=== PATIENT | male | born 1950 | race Caucasian/White ===

== ENCOUNTER 2019-03-03 14:10 | Emergency (ER) | payer SELFPAY ==
[~2019-03-03] VITALS: Ht 170.2 cm; Wt 67.0 kg
[2019-03-03 16:25] LABS: CLARITY URINE CLEAR (CLEAR); COLOR URINE YELLOW (YELLOW); KETONES URINE NEGATIVE (NEGATIVE); LEUKOCYTE ESTERASE URINE NEGATIVE (NEGATIVE); NITRITE URINE NEGATIVE (NEGATIVE); OCCULT BLOOD URINE NEGATIVE (NEGATIVE); PH URINE 6.5 (4.5-8.0); PROTEIN URINE NEGATIVE (NEGATIVE); SPECIFIC GRAVITY URINE 1.007 (1.005-1.030); UROBILINOGEN URINE 0.2 E.U./dL (0.2-1.0)
[2019-03-03] MEDS: KETOROLAC 30MG/ML VIAL IV ONE (16:27)
[2019-03-03] MEDS: SODIUM CHLORIDE 0.9% 1,000 ML IV ONE (16:27)
[2019-03-03 16:39] LABS: BASOPHILS % 0.7 % (0.0-2.0); EOSINOPHILS % 3.2 % (0.0-5.0); HEMATOCRIT. 32.5 % (42.0-52.0); HEMOGLOBIN. 10.7 g/dL (14.0-18.0); LYMPHOCYTES % 30.3 % (20.0-50.0); MEAN CORPUSCULAR HEMOGLOBIN 26.5 pg (28.0-32.0); MEAN CORPUSCULAR VOLUME 80.7 fL (80.0-94.0); MONOCYTES % 10.4 % (2.0-8.0); NEUTROPHILS % 55.4 % (40.0-76.0); PLATELET 280 x1000/uL (130-400); RED BLOOD CELL COUNT 4.03 mill/uL (4.7-6.1); RED CELL DISTRIBUTION WIDTH 17.3 % (11.6-14.6)
[2019-03-03 16:47] LABS: CHLORIDE 101 mEq/L (98-107)
[2019-03-03 16:48] LABS: INR 1.1; PROTHROMBIN TIME 11.1 sec (9.6-11.0)
[2019-03-03 16:51] LABS: ETHANOL BLOOD < 10 mg/dL
[2019-03-03 16:58] LABS: *AMPHETAMINES SCREEN URINE NEGATIVE (NEGATIVE); *BARBITURATES SCREEN URINE NEGATIVE (NEGATIVE); CANNABINOID URINE SCREEN NEGATIVE (NEGATIVE)
[2019-03-03 16:59] LABS: *BENZODIAZEPINES SCREEN URINE NEGATIVE (NEGATIVE); *COCAINE SCREEN URINE NEGATIVE (NEGATIVE); METHADONE URINE SCREEN NEGATIVE (NEGATIVE); OPIATES URINE SCREEN NEGATIVE (NEGATIVE); PHENCYCLIDINE URINE SCREEN NEGATIVE (NEGATIVE)
[2019-03-03] MEDS: POTASSIUM CHLORIDE 20MEQ TABLET SR PO ONE (18:25)
[2019-03-03 19:23] VITALS: BP 110/66
== END 2019-03-03 19:56 | disposition home or self-care (01) ==
LOC: ER 14:43
DX: R51 Headache (principal); D64.9 Anemia, unspecified; E87.6 Hypokalemia; R42 Dizziness and giddiness; M54.5 Low back pain; F17.290 Nicotine dependence, other tobacco product, uncomplicated
CPT/HCPCS: 36415; 70450; 71045; 80053; 80305; 80320; 81003; 85025; 85610; 87804; 93005; 96374; 99284; J1885; J7030; G0480